=== PATIENT | female | born 1995 | race Caucasian/White ===

== ENCOUNTER 2016-05-12 22:28 | Emergency (ER) | payer OTHER ==
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
== END 2016-05-12 23:17 | disposition home or self-care (01) ==
LOC: ER 22:28
DX: M54.5 Low back pain (principal)